=== PATIENT | male | born 1995 | race Caucasian/White ===

== ENCOUNTER 2023-11-02 12:44 | Emergency (ER) | payer OTHER ==
[~2023-11-02] VITALS: Ht 190.5 cm; Wt 113.4 kg
[~2023-11-02 12:44] MED LIST: AMOXICILLIN500 MG PO; CONCERTA36 MG PO; LORATADINE10 MG PO; VRAYLAR1.5 MG PO; ZOFRAN ODT4 MG SL
[2023-11-02] MEDS ORDERED: LORazepam 1 MG TAB PO ONE (13:30)
[2023-11-02] MEDS ORDERED: AUVELITY ER 451 EACH PO (13:32)
[2023-11-02] MEDS ORDERED: VRAYLAR3 MG PO (13:32)
[2023-11-02] MEDS ORDERED: VISTARIL25 M2 PO (13:33)
[2023-11-02 13:53] LABS: BASO % 0.4 % (0.0-1.0); EOS # 0.1 10*3/uL (0.0-0.4); EOS % 2.7 % (1.0-4.0); HEMATOCRIT 45.1 % (42.0-52.0); LYMPH # 0.8 10*3/uL (1.3-4.4); LYMPH % 18.2 % (27.0-41.0); MEAN CELL VOLUME 89.8 fl (80.0-94.0); MEAN CORPUSCULAR HGB 29.9 pg (27.0-31.0); MEAN CORPUSCULAR HGB CONC 33.3 g/dl (33.0-37.0); MEAN PLATELET VOLUME 10.6 fl (9.6-12.3); MONO # 0.3 10*3/uL (0.1-1.0); MONO % 6.2 % (3.0-9.0); NEUT # 3.2 10*3/uL (2.3-7.9); NEUT % 70.9 % (47.0-73.0); PLATELET COUNT AUTOMATED 164 10*3/uL (130-400); RED BLOOD COUNT 5.02 10*6/uL (4.50-5.90); RED CELL DISTRI WIDTH 13.6 % (0-14.5); WHITE BLOOD COUNT 4.5 10*3/uL (4.8-10.8)
[2023-11-02 14:06] LABS: BUN 14 mg/dl (9-23); CHLORIDE 107 mmol/L (98-107); POTASSIUM 4.8 mmol/L (3.4-5.1)
[2023-11-02 14:07] LABS: ETHYL ALCOHOL < 3.0 mg/dl (<3)
== END 2023-11-02 14:27 | disposition home or self-care (01) ==
LOC: ED 12:44
PROVIDERS: Nurse Practitioner Family
DX: F41.9 Anxiety disorder, unspecified (principal); F15.10 Other stimulant abuse, uncomplicated; F90.9 Attention-deficit hyperactivity disorder, unspecified type; F31.9 Bipolar disorder, unspecified; Z98.890 Other specified postprocedural states